=== PATIENT | male | born 2000 | race Caucasian/White ===

== ENCOUNTER 2025-03-18 18:24 | Emergency (ER) | payer OTHER ==
[2025-03-18] MEDS: Ibuprofen 800 MG Tab PO ONE (19:46)
[2025-03-18] MEDS: predniSONE 20 MG Tab PO ONE (19:46)
== END 2025-03-18 19:50 | disposition home or self-care (01) ==
LOC: DL.ED 18:24
DX: J06.9 Acute upper respiratory infection, unspecified (principal); B97.89 Other viral agents as the cause of diseases classified elsewhere
CPT/HCPCS: 87081; 87428-QW; 87430; 99283; 99284; A9270-GY; J7512